=== PATIENT | male | born 1935 | race Caucasian/White ===

== ENCOUNTER 2018-08-12 16:00 | Emergency (ER) | payer OTHER ==
[2018-08-12 16:27] VITALS: BP 159/98
--- NOTE | 2018-08-12 16:58 | UC ---
Neck Pain HPI - HPI Summary HPI Summary: The patient is an 82-year-old male with the onset of neck pain 3 days ago. He denies any trauma. He has had issues with his neck in the past. He also has some pain radiating down to his right scapula. His neck pain worsens with movement. He denies any numbness or tingling of his extremities. He denies any chest pain or shortness of breath. He denies any headache. - History of Current Complaint Chief Complaint: UCBackPain Stated Complaint: BACK AND NECK PAIN Time Seen by Provider: 08/12/18 16:43 Hx Obtained From: Patient Onset/Duration: Gradual Onset, Lasting Days Pain Intensity: 8 - 1 at present, 8 with certain movements or positions Pain Scale Used: 0-10 Numeric Location: Diffuse, Radiates To: - right scapular Character: Aching, Spasmotic Aggravating Factors: Position, Movement Alleviating Factors: Nothing Associated Signs & Symptoms: Positive: Negative Head: 1 - pain here 2 - radiates here - Allergies/Home Medications Allergies/Adverse Reactions: Allergies Allergy/AdvReac Type Severity Reaction Status Date / Time No Known Allergies Allergy Verified 08/12/18 16:27 PMH/Surg Hx/FS Hx/Imm Hx Endocrine History: Diabetes Cardiovascular History: Cardiac Disease, Hypertension - Surgical History Surgical History: Yes Surgery Procedure, Year, and Place: 2006 - Family History Known Family History: Positive: Cardiac Disease, Hypertension, Diabetes - Social History Alcohol Use: None Substance Use Type: None Smoking Status (MU): Former Smoker When Did the Patient Quit Smoking/Using Tobacco: 1972 Review of Systems All Other Systems Reviewed And Are Negative: Yes Constitutional: Positive: Negative Skin: Positive: Negative Eyes: Positive: Negative ENT: Positive: Negative Respiratory: Positive: Negative Cardiovascular: Positive: Negative Gastrointestinal: Positive: Negative Genitourinary: Positive: Negative Motor: Positive: Negative Musculoskeletal: Positive: Arthralgia - neck, Myalgia - neck Neurological: Positive: Negative Psychological: Positive: Negative Physical Exam Triage Information Reviewed: Yes Appearance: Well-Appearing, No Pain Distress, Well-Nourished Vital Signs: Initial Vital Signs Temp 98.1 F 08/12/18 16:17 Pulse 75 08/12/18 16:17 Resp 12 08/12/18 16:17 BP 159/98 08/12/18 16:17 Pulse Ox 95 08/12/18 16:17 Vital Signs Reviewed: Yes Eyes: Positive: Conjunctiva Clear ENT: Negative: Hearing grossly normal, Nasal congestion, Nasal drainage, Muffled voice, Hoarse voice Dental: Negative: Abscess @ Neck: Negative: Supple - limited ROM Respiratory: Positive: Lungs clear, Normal breath sounds, No respiratory distress, No accessory muscle use Cardiovascular: Positive: RRR Musculoskeletal: Positive: ROM Intact, No Edema Neurological: Positive: Alert, Other: - sensation and strenght intact Psychological Exam: Normal Skin Exam: Normal Diagnostics - Radiology No standard instances Radiology Interpretation Completed By: Radiologist Summary of Radiographic Findings: IMPRESSION: Nonspecific straightening of the normal cervical lordosis and multilevel. degenerative disc disease Neck Pain Course/Dx - Differential Dx/Diagnosis Provider Diagnosis: DDD (degenerative disc disease), cervical Discharge - Sign-Out/Discharge Documenting (check all that apply): Patient Departure All imaging exams completed and their final reports reviewed: Yes - Discharge Plan Condition: Stable Disposition: HOME Prescriptions: Meloxicam [Mobic] 7.5 mg PO DAILY PRN #14 tablet PRN Reason: Pain Patient Education Materials: Soft Cervical Collar (ED), Degenerative Disc Disease (ED) Referrals: No Primary Care Phys,NOPCP [Primary Care Provider] - - Billing Disposition and Condition Condition: STABLE Disposition: Home
== END 2018-08-12 18:09 | disposition home or self-care (01) ==
LOC: UCEAST 16:00
DX: M50.30 Other cervical disc degeneration, unspecified cervical region (principal); I10 Essential (primary) hypertension; I25.10 Atherosclerotic heart disease of native coronary artery without angina pectoris; Z87.891 Personal history of nicotine dependence
CPT/HCPCS: 72050; 99203; G0463

== ENCOUNTER 2018-11-01 14:29 | Emergency (ER) | payer OTHER ==
--- NOTE | 2018-11-01 14:50 | UC ---
Head Injury HPI - HPI Summary HPI Summary: 82 yo male presents s/p fall. He tells me that he was walking on [facility] [place] and tripped on the uneven sidewalk and fell forward. Landed on his left knee, right wrist, and nose skid against the ground. No LOC. No epistaxis. Was able to get to his feet with the help of his daughter with him. He applied a bandaid to an abrasion on his nose and came to . Unsure date of last tetanus. Currently denies any pain. Denies headache, dizziness, weakness, SOB, chest pain, n/v. - History Of Current Complaint Stated Complaint: FALL Time Seen by Provider: 11/01/18 14:49 Hx Obtained From: Patient, Family/[place] Onset/Duration: Sudden Onset Severity Currently: Mild Severity Initially: Mild Pain Intensity: 2 Pain Scale Used: 0-10 Numeric - Allergies/Home Medications Allergies/Adverse Reactions: Allergies Allergy/AdvReac Type Severity Reaction Status Date / Time No Known Allergies Allergy Verified 11/01/18 14:52 Home Medications: Home Medications Latanoprost/Pf [Latanoprost 0.005% Eye Drop] 7.5 ml OP DAILY 11/01/18 [History Confirmed 11/01/18] Lisinopril 40 mg PO DAILY 11/01/18 [History Confirmed 11/01/18] Metformin HCl [Fortamet] 1 tab PO DAILY 11/01/18 [History Confirmed 11/01/18] Metoprolol Succinate [Kapsp[place] Sprinkle] 25 mg PO DAILY 11/01/18 [History Confirmed 11/01/18] Pravastatin Sodium [Pravachol] 80 mg PO DAILY 11/01/18 [History Confirmed ] PMH/Surg Hx/FS Hx/Imm Hx Endocrine History: Diabetes, Dyslipidemia Cardiovascular History: Hypertension - Surgical History Surgical History: Yes Surgery Procedure, Year, and Place: stent 2006 - Family History Known Family History: Positive: Cardiac Disease, Hypertension, Diabetes - Social History Lives: With Family Alcohol Use: None Substance Use Type: None Smoking Status (MU): Former Smoker When Did the Patient Quit Smoking/Using Tobacco: 1972 Review of Systems All Other Systems Reviewed And Are Negative: No Constitutional: Positive: Negative Skin: Positive: Other - Abrasion nose and left knee Eyes: Positive: Negative ENT: Positive: Negative Respiratory: Positive: Negative Cardiovascular: Positive: Negative Gastrointestinal: Positive: Negative Genitourinary: Positive: Negative Motor: Positive: Negative Neurovascular: Positive: Negative Musculoskeletal: Positive: Negative Neurological: Positive: Negative Psychological: Positive: Negative Physical Exam - Summary Physical Exam Summary: GENERAL: NAD. WDWN. No pain distress. SKIN: LEFT KNEE: Anterior aspect with 2.0cm superficial abrasion. Clean appearing. NOSE: Nasal bridge with 1.0cm superficial abrasions. Clean appearing. No laceration. HEENT: Head: See skin. No raccoon eyes or battles sign. Eyes: PERRLA. EOM intact. Ears: Hearing grossly normal. No hemotympanum Nose: Nasal mucosa pink and moist. No hematoma or bleeding. NTTP maxillary and frontal sinus. NECK: Supple. Nontender. FROM CHEST: CTAB. No r/r/w. No accessory muscle use. Breathing comfortably and in no distress. CV: RRR. Pulses intact. Brisk cap refill. ABDOMEN: Soft. NTTP. Bowel sounds present MSK: FROM in B/L UEs and LEs with symmetric strength. NEURO: A&Ox3. 3 word recall, remote, recent memory, ability to follow 2-step directions, and attention intact. CN: II: Peripheral myrick intact. Vision normal. III, IV, : EOMI. No nystagmus. PERRLA. V: Sensations intact and symmetric. Opens mouth and clenches teeth. VII: No facial asymmetry. Forehead wrinkles. Grins, shuts eyes, frowns, puffs cheeks. VIII: Hearing intact to finger rub. IX, X: Swallows and coughs. Uvula midline. XI: Shrugs shoulders. Turns head against resistance. XII: No tongue deviation [id number] are intact. Gait with normal base. Romberg: maintains balance, no pronator drift. Normal speech. No facial drooping. PSYCH: Age appropriate behavior. Triage Information Reviewed: Yes Vital Signs: Vital Signs: Temp Pulse Resp BP Pulse Ox 98.2 F 70 18 131/77 99 11/01/18 14:55 11/01/18 14:55 11/01/18 14:55 11/01/18 14:55 11/01/18 14:55 Vital Signs Reviewed: Yes Diagnostics - Radiology CT brain Radiology Interpretation Completed By: Radiologist Summary of Radiographic Findings: IMPRESSION: NO ACUTE INTRACRANIAL PATHOLOGY. DIFFUSE INVOLUTIONAL CHANGE WITH CHRONIC SMALL VESSEL ISCHEMIC CHANGES. CT maxio Radiology Interpretation Completed By: Radiologist Summary of Radiographic Findings: IMPRESSION: NO FACIAL FRACTURE. Head Injury Course/Dx - Course Course Of Treatment: Abrasions cleansed with NS and dressed with telfa. CT negative as above. Advised to change dressings daily until well healed. To ED with any vomiting, headaches, dizziness, weakness, SOB, or chest pain - Differential Dx/Diagnosis Provider Diagnosis: Nasal abrasion, Knee abrasion, Fall Discharge ED - Sign-Out/Discharge Documenting (check all that apply): Patient Departure All imaging exams completed and their final reports reviewed: Yes - Discharge Plan Condition: Stable Disposition: HOME Patient Education Materials: Abrasion (ED), Skin Tear (ED) Referrals: Sae Berger MD [Primary Care Provider] - Additional Instructions: If you develop a fever, shortness of breath, chest pain, headache, dizziness, weakness, vomiting, new or worsening symptoms - please call your PCP or go to the ED immediately. Change the dressings daily until well healed (likely 7 days) Your tetanus shot was updated today - Billing Disposition and Condition Condition: STABLE Disposition: Home
[2018-11-01 14:57] VITALS: BP 131/77
[2018-11-01] MEDS ORDERED: Tetan/Diph/Pertus SYR(Tdap)* 0.5 ML SYR(BOOSTRIX) use SYR IM ONE (15:05)
== END 2018-11-01 15:51 | disposition home or self-care (01) ==
LOC: UCEAST 14:29
DX: S00.31XA Abrasion of nose, initial encounter (principal); S80.212A Abrasion, left knee, initial encounter; W18.30XA Fall on same level, unspecified, initial encounter; Y92.480 Sidewalk as the place of occurrence of the external cause; E11.9 Type 2 diabetes mellitus without complications; E78.5 Hyperlipidemia, unspecified; I10 Essential (primary) hypertension; Z23 Encounter for immunization; Z87.891 Personal history of nicotine dependence
CPT/HCPCS: 70450; 70486; 90471; 90715; 99212; G0463